=== PATIENT | male | born 1940 | race Caucasian/White ===

== ENCOUNTER → 2017-07-01 | Outpatient (CLI) | payer OTHER, BC ==
[~2017-07-01] MED LIST: AMARYL4 MG PO; ASPIRIN325 PO; AZITHROMYCIN 2250 MG PO; BENADRYL25 MG PO; BENICAR 5 MG5 M1 PO; CARVEDILOL3.125 MG PO; CEFDINIR300 MG PO; COREG3.125 MG PO; COZAAR 50 MG TA50 M1 PO; DIPROLENE 0.05%30 ML TOP; EFFIENT10 MG PO; FISH OIL 1,001000 M1 PO; GLUCOPHAGE1000 MG PO; LIVALO2 MG; MEDROL DOSPAK21 TAB PO; NEURONTIN 300300 M1 PO; NITRODUR; NITROGLYCERIN0.4 MG SUBLING; PEPCID40 MG PO; PLAVIX 75 MG TA75 MG; PLAVIX 75 MG TA75 MG PO; POLYSPORIN OINT15 GM TP; PRAVACHOL40 MG PO; PREDNISONE 10 M10 MG PO; PREDNISONE 20 M20 M1 PO; PROAIR HFA8.5 GM INH; ULTRAM 50MG TAB50 MG PO; VIAGRA100 MG PO; VISTARIL 25 MG25 M1 PO
== END ==
LOC: RAD 08:55
DX: R05 Cough (principal); I25.110 Atherosclerotic heart disease of native coronary artery with unstable angina pectoris; E11.9 Type 2 diabetes mellitus without complications; I10 Essential (primary) hypertension; E78.5 Hyperlipidemia, unspecified

== ENCOUNTER → 2018-06-05 | Outpatient (CLI) | payer OTHER, BC | LOC: CAT 10:19 | DX: M47.812 Spondylosis without myelopathy or radiculopathy, cervical region (principal); M25.78 Osteophyte, vertebrae; J34.89 Other specified disorders of nose and nasal sinuses; M54.6 Pain in thoracic spine; V89.2XXA Person injured in unspecified motor-vehicle accident, traffic, initial encounter; Y93.89 Activity, other specified; Y92.89 Other specified places as the place of occurrence of the external cause; Y99.8 Other external cause status ==

== ENCOUNTER → 2018-07-06 | Outpatient (CLI) | payer OTHER, BC | LOC: RAD 09:27 | DX: R07.89 Other chest pain (principal); R05 Cough ==

== ENCOUNTER 2018-07-13 00:38 | Inpatient (IN) | payer OTHER, BC ==
[~2018-07-13] VITALS: Ht 177.8 cm; Wt 102.1 kg
[2018-07-13 00:45] VITALS: BP 151/90
[2018-07-13 01:31] LABS: HEMOGLOBIN 14.5 gm/dL (14.0-18.0); MCH 29.2 pg (26.0-34.0); MCHC 33.8 g/dL (28.0-37.0); MCV 86.4 fL (80.0-100.0); RBC 4.97 mil/uL (4.50-6.00); RDW 13.5 % (10.5-14.5); WBC 9.4 thou/uL (4.0-11.0)
[2018-07-13 01:34] LABS: ANION GAP 7 mmol/L (7-16); BUN 18 mg/dL (7-18); CALCIUM 9.3 mg/dL (8.5-10.1); CHLORIDE 101 mmol/L (98-107); CO2 28 mmol/L (21-32); CREATININE 1.1 mg/dL (0.7-1.3); GLUCOSE 116 mg/dL (74-106); POTASSIUM 4.5 mmol/L (3.5-5.1); SODIUM 136 mmol/L (136-145)
[2018-07-13 01:55] LABS: TROPONIN-I <0.06 ng/mL (<0.06)
--- NOTE | 2018-07-13 03:16 | NUR ---
PATIENT STATES PREFERS ER CART TO HOSPITAL BED AT THIS TIME
[2018-07-13 06:54] VITALS: BP 114/72
[2018-07-13 07:33] VITALS: BP 122/78
[2018-07-13 08:11] VITALS: BP 142/89
--- NOTE | 2018-07-13 09:21 | EKG ---
[address] [place] [address] ELECTROCARDIOGRAM REPORT Name: TOR SEVILLASONIA Sarah Room #: 432-P ADM IN M.R.#: [id number] ������������������ Admission: 07/13/18 ������������������ Attend Phys: Yo Sharp MD Discharge: ������������������ Date of : 44 Report #: [id number] ����������������������������������������������������������������� [id number] THIS REPORT FOR: //name// [facility] ED Test Date: 2018-07-13 Test Time: 01:04:08 Pat Name: MAHENDRA SEVILLA Department: Room: [facility] Gender: M Government Affairs Fellow: SONNY : 1940 Requested By: Nabil Valera Order Number: [id number] MD: Manuel Julian Measurements Intervals [place] Rate: 66 P: 22 NM: 191 QRS: 5 QRSD: 88 T: 21 QT: 417 QTc: 437 Interpretive Statements Sinus rhythm Normal tracing Compared to ECG 08/22/2017 22:32:21 No significant changes Electronically Signed On 07-13-2018 9:20:58 [employer]BR[employer] ARTIST PHOTOGRAPHY by Manuel Julian [email or web address] ��������������������������������������������� <ELECTRONICALLY SIGNED> ���������������������������������������� By: Manuel Julian MD, [facility] ��������������������������������������������� 07/13/18 0920 0104 0104 Manuel Julian MD, FACC /EPI
--- NOTE | 2018-07-13 12:00 | NUR ---
Pt arrived to floor from emergency room dept at 0810 in stable condition . Admission hx,assessment and care plan completed.vss.Dr Sharp notified about pt admission to floor and he rounded on pt.Breakfast given and well tolerated. Steroid ivp given as ordered.Pt spouse here to visit.Updates given.Will continue to monitor.
[2018-07-13 15:40] VITALS: BP 136/81
[2018-07-13] MEDS ORDERED: ZANAFLEX4 MG PO (16:37)
--- NOTE | 2018-07-13 17:23 | NUR ---
PT ADMITTED RELATED TO PNEUMONIA. CM REVIEWED CHART AND SPOKE WITH CARE TEAM. CM MET WITH PT AT BEDSIDE THIS DAY. PT IS A&O X4. CM ROLE INTROEUDED. PT INDICATED HE LIVES IN A RAISED RANCH STYLE HOUSE WITH HIS WITH 14 STEPS TO ENTER THROUGH THE GARAGE AND NO STEPS INSIDE. 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 PT INDICATED THAT HE PLANS TO RETURN HOME ONCE MEDICALLY STABLE. CM TO FOLLOW INDICATED WITH DC PLANNING.
--- NOTE | 2018-07-13 23:36 | NUR ---
2044: Patient admitted to [facility] 225 from room 432. Transported to unit in a w/c w./ asst of COMPUTER ASSEMBLER. Ambulated from w/c to bed w/ standby asst, only. Gait steady. Patient remains A&Ox4. Oriented to room/call system/services/meds. Denies pain or discomfort. No s/s of acute distress noted. PO fluids encouraged. Will continue to monitor.
--- NOTE | 2018-07-14 05:03 | NUR ---
Patient remains A&Ox4; Swallows meds whole w/o difficlty. Remains cont. B&B; ambulates independently w/ steady gait. Blood sugars WNL. Breathing txs, as ordered, w/o difficluty. SL 20g noted to RFA + LAC; both sites flushed w/o difficulty. No cough/drainage noted. Patient in bed asleep w/ call light/desired belongings within reach. PO fluids encouraged. Will continue to monitor.
[2018-07-14 07:42] VITALS: BP 123/75
--- NOTE | 2018-07-14 07:47 | NUR ---
ASSUMED PT CARE AT 0700. PT AWAKE, ALERT/ORIENTED X4. PT UP AND AROUND IN ROOM STEADY ON FEET. NO SHORTNESS OF BREATH NOTED ALTHOUGH PT IS TACHYPNEIC AT 24 AND TACHYCARDIC AT 100 BPM. PT REPORTS OCCASIONAL COUGH AND SMALL AMOUNT OF SPUTUM PRODUCTION THAT IS CLEAR. REPORTS CHEST SORENESS FROM COUGHING RATED 5/10. PT WOULD LIKE TO BE BACK ON HIS HOME DOSE OF GABAPENTIN AND WOULD ALSO LIKE AN ANTIBIOTIC FOR HOME. OTEHRWISE NO NEW CONCERNS. WILL CONTINUE CURRENT CARE.
[2018-07-14] MEDS ORDERED: CEFDINIR300 MG PO (07:51)
[2018-07-14] MEDS ORDERED: PREDNISONE 10 M10 MG PO (07:52)
[2018-07-14 09:00] VITALS: BP 123/75
--- NOTE | 2018-07-14 09:20 | NUR ---
DISMISSED PT IN STABLE CONDITION TO HOME. VOLUNTEER ESCORTED PT OUT IN WHEELCHAIR.
== END 2018-07-14 09:20 | disposition home or self-care (01) | DRG 202 ==
LOC: ER 00:38 → EROBS 02:28 → 4E 02:28 → EROBS 02:28 → 4E 07:34 → SICU 21:17 → ENTRNSPT 07-14 09:11 → EDTRNSPTSTS 07-14 09:14 → SICU 07-14 09:20
PROVIDERS: Emergency Medicine; ADMIT Family Medicine
DX: J20.9 Acute bronchitis, unspecified (principal); J44.1 Chronic obstructive pulmonary disease with (acute) exacerbation; E11.40 Type 2 diabetes mellitus with diabetic neuropathy, unspecified; I10 Essential (primary) hypertension; E78.5 Hyperlipidemia, unspecified; Z87.891 Personal history of nicotine dependence; Z95.5 Presence of coronary angioplasty implant and graft; Z90.49 Acquired absence of other specified parts of digestive tract; Z79.82 Long term (current) use of aspirin; Z79.84 Long term (current) use of oral hypoglycemic drugs; Z79.899 Other long term (current) drug therapy
CPT/HCPCS: 15002

== ENCOUNTER → 2018-07-31 | Outpatient (CLI) | payer OTHER, BC ==
[~2018-07-31] MED LIST changes: +ZANAFLEX4 MG PO
[2018-07-31 08:29] LABS: CREATININE 1.1 mg/dL (0.7-1.3)
== END ==
LOC: CAT 07:46
PROVIDERS: Family Medicine
DX: I25.10 Atherosclerotic heart disease of native coronary artery without angina pectoris (principal); J84.10 Pulmonary fibrosis, unspecified; K80.80 Other cholelithiasis without obstruction; K75.3 Granulomatous hepatitis, not elsewhere classified; R59.9 Enlarged lymph nodes, unspecified; R91.8 Other nonspecific abnormal finding of lung field

== ENCOUNTER → 2018-08-10 | Outpatient (CLI) | payer OTHER, BC | LOC: RAD 10:45 | DX: R05 Cough (principal); J40 Bronchitis, not specified as acute or chronic ==

== ENCOUNTER → 2018-08-23 | Outpatient (CLI) | payer OTHER, BC ==
--- NOTE | 2018-08-26 06:55 | SLE ---
[facility] [place] [address] POLYSOMNOGRAPHY STUDY Name: MAHENDRA SEVILLA Room #: [facility]#: [id number] Admission: 08/23/18 ������������������ Attend Phys: Shubham Smith MD Discharge: ������������������ Date of : 44 Report #: [id number] THIS REPORT FOR: //name// CC: Shubham Sharp DATE OF SERVICE: 08/23/2018 ATTENDING PHYSICIAN: Dr. Shubham Smith. The patient is 78 years old who weighs 225 pounds with a BMI of 34.2. The patient underwent split night study performed at [facility]. During the night study, the patient spent 496 minutes in bed and slept for 315 minutes with a sleep efficiency of 63.6%. Sleep latency was 3.6 minutes with a REM latency of 245 minutes. Overall, sleep architecture showed increased stage 1 and stage 2 sleep, absent N3 sleep and significantly reduced REM sleep, which is only 0.8% of the total sleep time. During the initial diagnostic portion of the study, the patient slept for 120 minutes. During that time, there were 70 obstructive apneas, no mixed or central apneas and 39 hypopneas. The patient's apnea hypopnea index was 54 per hour. REM sleep was not observed. Supine AHI was 54 per hour as well. EKG monitoring revealed an average heart rate of 66 beats per minute. No sustained arrhythmias observed. No clinically significant PLM seen. Nocturnal oximetry study revealed an average oxygen saturation of 90% with lowest of 84%, 3.2 minutes were spent at oxygen saturation less than 89%. The patient met the criteria for CPAP initiation. It was started at 6 cm of water and titrated up to 15 cm water. At the final pressure, the patient slept for 47 minutes. The patient had no REM sleep. The patient did have supine sleep throughout. The patient's AHI was reduced to 5.1 per hour and oxygen saturation remained above 93%. IMPRESSION: 1. Severe sleep apnea-hypopnea syndrome at an AHI of 54 per hour. 2. Nocturnal hypoxia secondary to obstructive sleep apnea, but resolved with CPAP. 3. No clinically significant periodic limb movements. RECOMMENDATIONS: [facility] [address] [place] [address] POLYSOMNOGRAPHY STUDY Name: DIMAHENDRA Tyrel Room #: [facility]#: [id number] Admission: 08/23/18 ������������������ Attend Phys: Shubham Smith MD Discharge: ������������������ Date of : 44 Report #: [id number] 1. CPAP at 15 cm water completely eliminated the patient's sleep apnea and should be used on a nightly basis. 2. Follow up in 4-6 weeks to assess compliance with CPAP and to document clinical improvement. 3. Weight loss is strongly advised. 4. Avoid CELLULAR EQUIPMENT INSTALLER depressants. 5. Cautioned regarding driving until symptoms of sleep apnea resolve with the use of CPAP. ��������������������������������������������� <ELECTRONICALLY SIGNED> ���������������������������������������� By: Reji Campoverde MD ��������������������������������������������� 08/26/18 0655 09 2350 Reji Campoverde MD /jazmin
== END ==
LOC: SLEEPLAB 19:39
DX: G47.33 Obstructive sleep apnea (adult) (pediatric) (principal); G47.34 Idiopathic sleep related nonobstructive alveolar hypoventilation

== ENCOUNTER → 2018-08-31 | Outpatient (CLI) | payer OTHER, BC ==
[2018-08-31 15:08] LABS: ABSOLUTE NEUTROPHILS 4.9 thou/uL (1.4-8.2); BASOPHILS 1.3 % (0.0-2.0); EOSINOPHILS 17.1 % (0.0-3.0); HEMATOCRIT 44.3 % (42.0-52.0); HEMOGLOBIN 14.9 gm/dL (14.0-18.0); LYMPHOCYTES 13.6 % (24.0-44.0); MCH 29.7 pg (26.0-34.0); MCHC 33.7 g/dL (28.0-37.0); MCV 88.2 fL (80.0-100.0); MONOCYTES 7.1 % (1.0-8.0); PLATELET COUNT 252 thou/uL (150-400); POLYS 60.9 % (36.0-66.0); RBC 5.02 mil/uL (4.50-6.00); RDW 15.4 % (10.5-14.5); WBC 8.1 thou/uL (4.0-11.0)
[2018-08-31 15:13] LABS: CREATININE 0.9 mg/dL (0.7-1.3); POTASSIUM 5.2 mmol/L (3.5-5.1)
== END ==
LOC: CAT 14:21
PROVIDERS: Pediatrics
DX: J47.9 Bronchiectasis, uncomplicated (principal); R91.1 Solitary pulmonary nodule; K80.20 Calculus of gallbladder without cholecystitis without obstruction; N28.1 Cyst of kidney, acquired

== ENCOUNTER → 2018-09-28 | Outpatient (CLI) | payer OTHER, BC | LOC: LAB 09:08 → MRI 09:08 → ULTRA 09:08 | DX: Z01.812 Encounter for preprocedural laboratory examination (principal); K80.20 Calculus of gallbladder without cholecystitis without obstruction; K76.0 Fatty (change of) liver, not elsewhere classified; N28.1 Cyst of kidney, acquired; M47.814 Spondylosis without myelopathy or radiculopathy, thoracic region; M47.816 Spondylosis without myelopathy or radiculopathy, lumbar region ==

== ENCOUNTER 2018-10-08 07:39 | Day surgery (SDC) | payer OTHER, BC ==
[~2018-10-08] VITALS: Ht 172.7 cm; Wt 100.7 kg
[~2018-10-08 07:39] MED LIST changes: +COREG6.25 MG PO; +LOSARTAN POTAS100 MG PO; +NEURONTIN600 MG PO; +PROTONIX40 M1 PO; +TUMS PO; +VENTOLIN HFA 1818 GM INH
[2018-10-08 10:28] LABS: HEMATOCRIT 43.8 % (42.0-52.0); HEMOGLOBIN 14.7 gm/dL (14.0-18.0)
[2018-10-08 10:45] LABS: ALBUMIN 3.8 g/dL (3.4-5.0); CALCIUM 9.6 mg/dL (8.5-10.1); POTASSIUM 4.9 mmol/L (3.5-5.1); TOTAL BILIRUBIN 1.8 mg/dL (<0.1-1.0); TOTAL PROTEIN 6.9 g/dL (6.4-8.2)
[2018-10-08 11:11] VITALS: BP 122/93
[2018-10-08] MEDS ORDERED: NORCO 5-325 TA1 EACH PO (13:25)
[2018-10-08] MEDS ORDERED: ONDANSETRON HCL4 M2 PO (13:25)
[2018-10-08 13:52] VITALS: BP 122/93
--- NOTE | 2018-10-13 13:06 | PATH ---
[facility] [address] [place] [address] PATHOLOGY RPT PROCEDURE Name: MAHENDRA RICHMOND Room #: DEP [facility].#: [id number] ������������������ Admission: 10/08/18 ������������������ Date of : 44 Discharge: 10/08/18 Report #: [id number] Path Case #: [id number] [facility] Accession Number: [id number] . 01 Material submitted: . gallbladder - GALLBLADDER . 01 Clinical history: . Gallstones . 02 Diagnosis: Gallbladder "gallbladder", cholecystectomy: - Moderate chronic cholecystitis with polypoid cholesterolosis. - Cholelethiasis. (SHA:[facility] 10/13/2018) QTP/10/13/2018 . 02 Electronically signed: . Porter Ray MD, Pathologist NPI- [id number] . 01 Gross description: . The specimen is received in formalin, labeled "Mahendra Richmond gallbladder". Received is a previously opened gallbladder measuring 8.5 x 3.1 x 1.5 cm in greatest dimensions displaying a bile-stained serosal surface. Opening the specimen reveals a velvety, bile-stained mucosa with mild cholesterolosis and a single polypoid excrescence measuring 0.4 cm. The gallbladder wall measures 0.1 cm in thickness. Calculi are present displaying a black and stellate appearance, and no masses or lesions are noted grossly. Reel Film Inspector sections, to include the proximal margin and polypoid excrescence, are submitted in cassette A1. ([facility]; 10/09/2018) QAC/QAC . 02 Pathologist provided ICD-10: K81.1, K82.4 . 02 CPT . 631189 Specimen Comment: A courtesy copy of this report has been sent to Specimen Comment: [phone], . Specimen Comment: Report sent to / DR HIGGINS Performed at: [address] [id number] MD Tin Villa MD Phone: [phone] Performed at: 02 [place] [address] PATHOLOGY RPT PROCEDURE Name: MAHENDRA RICHMOND Room #: DEP [facility] Dre#: [id number] ������������������ Admission: 10/08/18 ������������������ Date of : 44 Discharge: 10/08/18 Report #: [id number] Path Case #: [id number] [facility] [address], [place], [place] [id number] MD Nilsa Rajan MD Phone: [phone]
== END 2018-10-08 14:35 | disposition home or self-care (01) ==
LOC: TBA 07:39 → OR 07:39 → TBA 07:40 → OR 14:35
PROVIDERS: Surgery
DX: K80.20 Calculus of gallbladder without cholecystitis without obstruction (principal); I10 Essential (primary) hypertension; J43.9 Emphysema, unspecified; I25.2 Old myocardial infarction; G47.33 Obstructive sleep apnea (adult) (pediatric); E11.9 Type 2 diabetes mellitus without complications; K21.9 Gastro-esophageal reflux disease without esophagitis; Z90.49 Acquired absence of other specified parts of digestive tract; Z79.899 Other long term (current) drug therapy; Z98.890 Other specified postprocedural states; Z95.5 Presence of coronary angioplasty implant and graft; Z87.891 Personal history of nicotine dependence
CPT/HCPCS: 50010; 50101; 50249; 50411; 50555; 50558; 50962; 51975; 52265; 53307; 53310; 54022; 54118; 55245; 55317; 56462; 56525; 56526; 62110; 62900; 70005

== ENCOUNTER → 2018-12-21 | Outpatient (CLI) | payer OTHER, BC ==
[~2018-12-21] MED LIST changes: +NORCO 5-325 TA1 EACH PO; +ONDANSETRON HCL4 M2 PO
== END ==
LOC: LABMALL 09:14 → CAT 09:14
PROVIDERS: Nurse Practitioner
DX: J92.9 Pleural plaque without asbestos (principal)

== ENCOUNTER → 2019-03-22 | Outpatient (CLI) | payer OTHER, BC | LOC: RAD 11:08 | DX: J84.10 Pulmonary fibrosis, unspecified (principal) ==

== ENCOUNTER → 2020-02-16 | Outpatient (CLI) | payer OTHER, BC | LOC: SJCVCIMAG 09:58 | PROVIDERS: ATTEND Internal Medicine | DX: I08.3 Combined rheumatic disorders of mitral, aortic and tricuspid valves (principal); R00.1 Bradycardia, unspecified; I11.9 Hypertensive heart disease without heart failure; I25.119 Atherosclerotic heart disease of native coronary artery with unspecified angina pectoris; E78.5 Hyperlipidemia, unspecified; I71.2 Thoracic aortic aneurysm, without rupture; E11.9 Type 2 diabetes mellitus without complications; Z79.899 Other long term (current) drug therapy; Z87.891 Personal history of nicotine dependence ==

== ENCOUNTER → 2020-08-15 | Outpatient (CLI) | payer OTHER, BC | LOC: SJCVC 10:47 | PROVIDERS: ATTEND Internal Medicine | DX: R94.31 Abnormal electrocardiogram [ECG] [EKG] (principal); I11.9 Hypertensive heart disease without heart failure; I25.119 Atherosclerotic heart disease of native coronary artery with unspecified angina pectoris; I71.2 Thoracic aortic aneurysm, without rupture; E78.5 Hyperlipidemia, unspecified; E11.9 Type 2 diabetes mellitus without complications; E78.00 Pure hypercholesterolemia, unspecified; G47.33 Obstructive sleep apnea (adult) (pediatric); Z79.82 Long term (current) use of aspirin; Z79.84 Long term (current) use of oral hypoglycemic drugs; Z79.899 Other long term (current) drug therapy; Z87.891 Personal history of nicotine dependence ==

== ENCOUNTER → 2021-02-22 | Outpatient (CLI) | payer OTHER, BC | LOC: SJCVCIMAG 08:21 | PROVIDERS: ATTEND Internal Medicine | DX: I08.3 Combined rheumatic disorders of mitral, aortic and tricuspid valves (principal); I25.10 Atherosclerotic heart disease of native coronary artery without angina pectoris; I25.119 Atherosclerotic heart disease of native coronary artery with unspecified angina pectoris; I10 Essential (primary) hypertension; E78.5 Hyperlipidemia, unspecified; I71.2 Thoracic aortic aneurysm, without rupture; E11.9 Type 2 diabetes mellitus without complications; Z87.891 Personal history of nicotine dependence; Z79.82 Long term (current) use of aspirin; Z79.899 Other long term (current) drug therapy; Z98.61 Coronary angioplasty status ==